=== PATIENT | male | born 1985 | race Hispanic/Latino ===

== ENCOUNTER 2024-02-27 19:22 | Emergency (ER) | payer BC ==
[~2024-02-27] VITALS: Ht 170.2 cm; Wt 101.6 kg
[2024-02-27 19:31] VITALS: PULSE 74; RESP 18; TEMP 98.3; O2SAT 97
[2024-02-27] MEDS ORDERED: CYCLOBENZAPRINE10 MG PO (19:52)
[2024-02-27] MEDS ORDERED: KETOROLAC TROMETHAMINE 30 MG/ML VIAL ONE (20:05)
[2024-02-27] MEDS: KETOROLAC TROMETHAMINE 30 MG/ML VIAL IM STA (20:11)
== END 2024-02-27 20:13 | disposition home or self-care (01) ==
LOC: FSED 19:26
DX: M54.50 Low back pain, unspecified (principal); X50.9XXA Other and unspecified overexertion or strenuous movements or postures, initial encounter; Y92.89 Other specified places as the place of occurrence of the external cause
CPT/HCPCS: 99282; J1885